=== PATIENT | male | born 1970 | race Caucasian/White ===

== ENCOUNTER → 2016-09-01 | Outpatient (CLI) | payer OTHER ==
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
--- NOTE | 2016-09-01 16:14 | DI ---
XR C-SPINE 2-3 VW,09/01/2016 10:59 AM: Clinical History: Facet arthropathy. Previous Exam: None at this facility. Findings: AP, lateral, flexion and extension views of the cervical spine are obtained, and demonstrate postsurg ical changes within the anterior prevertebral soft tissues. The base of the skull is unremarkable. There is no instability on flexion or extension. Impression: Mild degenerative changes of the cervical spine otherwise unremarkable.
== END ==
LOC: NM 10:24
PROVIDERS: ATTEND Neurological Surgery
DX: M12.88 Other specific arthropathies, not elsewhere classified, other specified site (principal); M48.32 Traumatic spondylopathy, cervical region; M46.96 Unspecified inflammatory spondylopathy, lumbar region
CPT/HCPCS: 72040; 72125; 72128; 72131; A9503